=== PATIENT | female | born 1980 ===

== ENCOUNTER 2019-11-25 18:54 | Emergency (ER) | payer SELFPAY ==
[2019-11-25 19:38] VITALS: BP 111/77
--- NOTE | 2019-11-25 21:26 | Emergency Department Report ---
[facility] Chief Complaint: Skin/Abscess/Foreign Body Stated Complaint: HAND ABSCESS Time Seen by Provider: 11/25/19 20:51 Duration: 4 Days Location: Upper Extremity (right hand) History: Yes Pain, No Fever, No Purulent Drainage, No Numbness, No Foreign Body, No Previous History, No Insect Bite HPI: 39 y/o AA female presents to ER for worsting cellultis that has turned into an abscsess. Increase pain and swelling. Patient reports that she has been taking her Abx as prescribed and her pain medication. Denies any drainage. No fever or chills. Home Medications: Previous Rx's Medication Instructions Recorded Last Taken Type Clindamycin [Clindamycin CAP] 450 mg PO TID 7 Days #63 capsule 11/23/19 Unknown Rx Sulfamethoxazole/Trimethoprim 1 each PO BID 7 Days #14 tablet 11/23/19 Unknown Rx [Bactrim DS TAB] traMADoL [Ultram 50 MG tab] 50 mg PO Q6HR PRN #10 tablet 11/23/19 Unknown Rx Allergies/Adverse Reactions: Allergies Allergy/AdvReac Type Severity Reaction Status Date / Time No Known Allergies Allergy Unverified 11/23/19 10:43 ED Review of Systems ROS: Stated complaint: HAND ABSCESS Other details as noted in HPI ED Past Medical Hx - Past Medical History Previous Medical History?: No - Surgical History Past Surgical History?: No - Social History Smoking Status: Current Every Day Smoker Substance Use Type: Alcohol, Marijuana - Medications Home Medications: Home Medications Medication Instructions Recorded Confirmed Last Taken Type Clindamycin [Clindamycin CAP] 450 mg PO TID 7 Days #63 capsule 11/23/19 Unknown Rx Sulfamethoxazole/Trimethoprim 1 each PO BID 7 Days #14 tablet 11/23/19 Unknown Rx [Bactrim DS TAB] traMADoL [Ultram 50 MG tab] 50 mg PO Q6HR PRN #10 tablet 11/23/19 Unknown Rx ED Abscess Boil Physical Exam - Exam General: Vital signs noted. No distress. Alert and acting appropriately. I & D Note - I & D Note I & D Note: DATE OF PROCEDURE: 11/25/2019. PREOPERATIVE DIAGNOSES: 1.soft tissue infection right dorsum thenar. POSTOPERATIVE DIAGNOSES: 1right hand...soft tissue infection. Infection appeared to be contained to subcutaneous tissue and there was no evidence of necrotizing soft tissue infection including myonecrosis. OPERATION PERFORMED: Incision and drainage of ..... soft tissue abscess. Provider: Talita Sears PA-C. ANESTHESIA: Local. DESCRIPTION OF PROCEDURE: The patient was prepped and draped. Seropurulent, somewhat bloody fluid was noted. The infection appeared contained to a quarter-sized area in the subcutaneous tissues above the fascia. There was no evidence of myonecrosis, penetration of the fascia or significant extent along the fascia of the infection. We cleaned the area with Betadine and then packed the wound .......... Dry dressings were applied. The patient appeared to tolerate the procedure well. ED Course Vital Signs 11/25/19 19:23 Temperature 98.7 F Pulse Rate 101 H Respiratory 12 Rate Blood Pressure 111/77 O2 Sat by Pulse 97 Oximetry Critical care attestation.: If time is entered above; I have spent that time in minutes in the direct care of this critically ill patient, excluding procedure time. ED Medical Decision Making - Medical Decision Making 39 y/o AA female presents to ER for worsting cellultis that has turned into an abscsess. Increase pain and swelling. Patient reports that she has been taking her Abx as prescribed and her pain medication. Denies any drainage. No fever or chills. I&D completed with good responds. Continue with Abx and pain medication. Change bandage daily. F/U with [facility]. ED Disposition Clinical Impression: Abscess of right hand excluding fingers and thumb, Cellulitis Disposition: DC-01 TO HOME OR SELFCARE Is pt being admited?: No Does the pt Need Aspirin: No Condition: Stable Instructions: Abscess (ED) Additional Instructions: Please complete antibiotics that was prescribed to you on your last visit. Keep wound clean and dry. Referrals: PRIMARY [facility]EM[facility] [Primary Care Provider] - 3-5 Days [facility] [Provider Group] - 3-5 Days
== END 2019-11-25 21:03 | disposition home or self-care (01) ==
LOC: ED 18:54
DX: L03.113 Cellulitis of right upper limb (principal); L02.511 Cutaneous abscess of right hand; F17.200 Nicotine dependence, unspecified, uncomplicated; Z79.2 Long term (current) use of antibiotics; Z79.899 Other long term (current) drug therapy
CPT/HCPCS: 99282

== ENCOUNTER 2020-06-10 21:02 | Emergency (ER) | payer SELFPAY ==
[2020-06-10 21:14] VITALS: BP 125/80
--- NOTE | 2020-06-10 21:27 | Emergency Department Report ---
Chief Complaint: Headache Stated Complaint: HEADACHES - HPI History of Present Illness: 40-year-old -[place] female presents to the emergency room for a headache. Patient told the triage nurse that she came in for Covid test but since we are not testing for Covid then she has a headache and wants to be seen. Patient states that her headache started today she took ibuprofen around 6:00. Patient does admit that she does not drink water she smokes cigarettes does not do any drugs and did have drinks last night. She denies any nausea vomiting no chest pain no shortness of breath no abdominal pain no change of vision no head injury. - Exam Vital Signs: Vital Signs 06/10/20 21:13 Temperature 98.4 F Pulse Rate 99 H Respiratory 12 Rate Blood Pressure 125/80 O2 Sat by Pulse 100 Oximetry Physical Exam: Alert and oriented x3 no acute distress nontoxic in appearance no facial droop. Tongue midline. Extraocular movements intact bilaterally. Facial sensation intact to light touch in V1, V2, V3 distribution bilaterally strength 5 out of 5 in all extremities. Sensation intact to light touch in 4 extremities. Negative Romberg. MSE screening note: Focused history and physical exam performed. Due to findings the following was ordered: 40-year-old -[place] female presents to the emergency room for a headache. Patient told the triage nurse that she came in for Covid test but since we are not testing for Covid then she has a headache and wants to be seen. Patient states that her headache started today she took ibuprofen around 6:00. Patient does admit that she does not drink water she smokes cigarettes does not do any drugs and did have drinks last night. She denies any nausea vomiting no chest pain no shortness of breath no abdominal pain no change of vision no head injury. ED Disposition for MSE Disposition: MED SCREENING EXAM-LEFT Is pt being admited?: No Does the pt Need Aspirin: No Condition: Stable Instructions: General Headache Without Cause Additional Instructions: Tke Tylenol or Ibuprofen for headache. Increase your fluid intake. Follow up with a Primary Care Provider. Referrals: [facility] [Provider Group] - 3-5 Days Forms: Work/School Release Form(ED)
== END 2020-06-10 23:33 | disposition left against medical advice (07) ==
LOC: ED 21:02
DX: R51.9 Headache, unspecified (principal); Z53.21 Procedure and treatment not carried out due to patient leaving prior to being seen by health care provider

== ENCOUNTER 2022-01-17 17:14 | Emergency (ER) | payer SELFPAY ==
[2022-01-17 18:04] VITALS: BP 112/79
[2022-01-17] MEDS ORDERED: EMLA CREAM 5 GM TP ONE (22:34)
[2022-01-17] MEDS ORDERED: HYDROcodone/ACETAMINOPHEN 5-325 MG TAB PO ONE (22:34)
[2022-01-17] MEDS ORDERED: IBUPROFEN 800 MG TAB PO ONE (22:34)
--- NOTE | 2022-01-17 22:38 | Emergency Department Report ---
- General Chief complaint: Skin/Abscess/Foreign Body Stated complaint: PAINFUL CYST RT AXILLA Time Seen by Provider: 01/17/22 21:20 Source: patient Mode of arrival: Ambulatory Limitations: No Limitations - History of Present Illness Initial comments: 42-year-old female history of hydradenitis suppurativa presents to the emergency department with a cyst on her armpit. Patient describes painful cyst swelling under her right armpit which began yesterday, states she "always has a cyst under the armpit but this 1 has become infected and needs to be drained". She does report history of prior cysts usually would get drained and would recur recur after couple of months. She is not currently seeing a atg java developer for further management of her hydradenitis. Symptoms associated with pain, which she describes as sharp, worse with touch and movement. She denies headache no fever, no weakness, no nausea, no vomiting, no diarrhea, no chest pain, no shortness of breath. She denies being . - Related Data Previous Rx's Medication Instructions Recorded Last Taken Type Clindamycin [Clindamycin CAP] 450 mg PO TID 7 Days #63 capsule 11/23/19 Unknown Rx Sulfamethoxazole/Trimethoprim 1 each PO BID 7 Days #14 tablet 11/23/19 Unknown Rx [Bactrim DS TAB] Doxycycline Hyclate 100 mg PO BID #14 01/17/22 Unknown Rx Ibuprofen [Motrin 800 MG tab] 800 mg PO Q8HR PRN #30 tablet 01/17/22 Unknown Rx traMADoL [Ultram 50 MG tab] 50 mg PO Q6HR PRN #10 tablet 01/17/22 Unknown Rx Allergies Allergy/AdvReac Type Severity Reaction Status Date / Time No Known Allergies Allergy Verified 01/17/22 18:04 Abscess Boil HPI - HPI Chief Complaint: Skin/Abscess/Foreign Body Stated Complaint: PAINFUL CYST RT AXILLA Time Seen by Provider: 01/17/22 21:20 Home Medications: Previous Rx's Medication Instructions Recorded Last Taken Type Clindamycin [Clindamycin CAP] 450 mg PO TID 7 Days #63 capsule 11/23/19 Unknown Rx Sulfamethoxazole/Trimethoprim 1 each PO BID 7 Days #14 tablet 11/23/19 Unknown Rx [Bactrim DS TAB] Doxycycline Hyclate 100 mg PO BID #14 01/17/22 Unknown Rx Ibuprofen [Motrin 800 MG tab] 800 mg PO Q8HR PRN #30 tablet 01/17/22 Unknown Rx traMADoL [Ultram 50 MG tab] 50 mg PO Q6HR PRN #10 tablet 01/17/22 Unknown Rx Allergies/Adverse Reactions: Allergies Allergy/AdvReac Type Severity Reaction Status Date / Time No Known Allergies Allergy Verified 01/17/22 18:04 ED Review of Systems ROS: Stated complaint: PAINFUL CYST RT AXILLA Other details as noted in HPI Eyes: as per HPI ENT: as per HPI Respiratory: denies: shortness of breath Cardiovascular: denies: chest pain, palpitations Endocrine: denies: increased hunger, increased thirst, increased urine Gastrointestinal: denies: abdominal pain, nausea, vomiting, diarrhea Genitourinary: denies: urgency, frequency Musculoskeletal: denies: back pain, joint swelling, arthralgia Skin: rash, lesions, change in color Neurological: denies: headache, weakness Psychiatric: denies: anxiety, auditory hallucinations, visual hallucinations, homicidal thoughts Hematological/Lymphatic: swollen glands. denies: easy bleeding ED Past Medical Hx - Past Medical History Previous Medical History?: Yes Additional medical history: Hydradenitis suppurativa - Social History Smoking Status: Current Every Day Smoker Substance Use Type: Alcohol - Medications Home Medications: Home Medications Medication Instructions Recorded Confirmed Last Taken Type Clindamycin [Clindamycin CAP] 450 mg PO TID 7 Days #63 capsule 11/23/19 Unknown Rx Sulfamethoxazole/Trimethoprim 1 each PO BID 7 Days #14 tablet 11/23/19 Unknown Rx [Bactrim DS TAB] Doxycycline Hyclate 100 mg PO BID #14 01/17/22 Unknown Rx Ibuprofen [Motrin 800 MG tab] 800 mg PO Q8HR PRN #30 tablet 01/17/22 Unknown Rx traMADoL [Ultram 50 MG tab] 50 mg PO Q6HR PRN #10 tablet 01/17/22 Unknown Rx ED Physical Exam - General Limitations: No Limitations General appearance: alert, in no apparent distress - Head Head exam: Present: atraumatic - Eye Eye exam: Present: normal appearance, PERRL Pupils: Present: normal accommodation - ENT ENT exam: Present: normal exam, normal orophraynx - Neck Neck exam: Present: normal inspection, tenderness - Respiratory Respiratory exam: Present: normal lung sounds bilaterally. Absent: respiratory distress - Cardiovascular Cardiovascular Exam: Present: regular rate, normal rhythm - GI/Abdominal GI/Abdominal exam: Present: soft. Absent: distended, tenderness - Extremities Exam Extremities exam: Present: normal inspection, full ROM - Expanded Upper Extremity Exam Right Upper Arm exam: Present: tenderness, swelling, other (Patient has a 3 x 4 indurated erythematous, fluctuance, swelling) ED Course Vital Signs 01/17/22 18:01 Temperature 98.8 F Pulse Rate 99 H Respiratory 18 Rate Blood Pressure 112/79 O2 Sat by Pulse 100 Oximetry - I & D Right Arm Type of Procedure: Simple Site: 3 x 4 abscess under her right axilla Blade Size: 11 I & D Procedure: betadine prep Progress: Verbal consent obtained for incision and drainage of a abscess secondary to hydradenitis suppurativa. Patient declined lidocaine injection for anesthetic, she only wanted topical lidocaine which I did. She only allowed a superficial incision because "I know how you are this is going to hurt and the medicines stings just 1 cut". I could not successfully incised the area for express as patient declined all of that, and told me to stop. She states she will express her self dressed the wound itself, because "I have done this many times ". I have attempted to educating patient what to do and how to do it and to allow me i to make a deeper incision, and expressed area, based on exam it appears the area would need some packing, but patient declined" . ED Medical Decision Making - Medical Decision Making 42-year-old female history of hydradenitis suppurativa presents to the emergency department with a cyst on her armpit. Patient describes painful cyst swelling under her right armpit which began yesterday, states she "always has a cyst under the armpit but this 1 has become infected and needs to be drained". She does report history of prior cysts usually would get drained and would recur recur after couple of months. She is not currently seeing a atg java developer for further management of her hydradenitis. Symptoms associated with pain, which she describes as sharp, worse with touch and movement. She denies headache no fever, no weakness, no nausea, no vomiting, no diarrhea, no chest pain, no shortness of breath. She denies being . I&D unsuccessfully performed to patient's requirement, prescribed some antibiotics with strict instructions he does need to follow-up with surgery/dermatology for Discharge home with doxycycline, tramadol, ibuprofen, home care instructions and follow-up Patient remained stable nontoxic-appearing, afebrile, ambulating steadily without assistance. Gone over ED findings with patient as well as plan for follow-up. Also discussed return precautions with patient, all questions and concerns addressed. Patient is stable to be discharged follow-up outpatient. Audio voice dictation device used, hence the chart might contain some dictation errors, mispronunciations, wrong spelling and wrong verbiage. Critical care attestation.: If time is entered above; I have spent that time in minutes in the direct care of this critically ill patient, excluding procedure time. ED Disposition Clinical Impression: Abscess of axilla, right, Suppurative hidradenitis Disposition: 01 HOME / SELF CARE / HOMELESS Is pt being admited?: No Does the pt Need Aspirin: No Condition: Stable Instructions: Incision and Drainage, Care After Prescriptions: Doxycycline Hyclate 100 mg PO BID #14 Ibuprofen [Motrin 800 MG tab] 800 mg PO Q8HR PRN #30 tablet PRN Reason: Pain , Severe (7-10) traMADoL [Ultram 50 MG tab] 50 mg PO Q6HR PRN #10 tablet PRN Reason: Pain , Severe (7-10) Referrals: KELLEY NORTON MD [Staff Physician] - 3-5 Days Forms: Work/School Release Form(ED)
== END 2022-01-18 03:04 | disposition home or self-care (01) ==
LOC: ED 17:14
DX: L02.411 Cutaneous abscess of right axilla (principal); L73.2 Hidradenitis suppurativa; F17.200 Nicotine dependence, unspecified, uncomplicated; F10.20 Alcohol dependence, uncomplicated
CPT/HCPCS: 99282